=== PATIENT | female | born 1930 | race Caucasian/White ===

== ENCOUNTER 2016-07-23 07:15 | Emergency (ER) | payer OTHER ==
--- NOTE | 2016-07-23 09:43 | DIAGNOSTIC IMAGING REPORT ---
PROCEDURE: CT HEAD WITHOUT CONTRAST INDICATION: TRAUMA/INJURY TECHNIQUE: Axial CT images were acquired through the head. Coronal and sagittal reformations were created. COMPARISON: Head CT and 12/07/2012 FINDINGS: No underlying fracture or intracranial hemorrhage. Mild cortical atrophy and enlargement of the ventricular system. Mild white matter chronic ischemic changes. There is no acute CVA, edema, mass or midline shift. Small left parietal osteoma. The mastoids are clear. IMPRESSION: 1. No fracture or intracranial hemorrhage 2. Mild atrophy and white matter chronic ischemic changes 3. Results were called to Dr. Parham at 08:[address] scans at this facility use dose modulation, iterative reconstruction, and/or weight-based dosing when appropriate to reduce radiation dose to as low as reasonably achievable.
--- NOTE | 2016-07-23 10:18 | DIAGNOSTIC IMAGING REPORT ---
PROCEDURE: XR CHEST 1 VIEW INDICATION: WEAK TECHNIQUE: Portable AP view 09:53 a.m. COMPARISON: Chest x-ray 09/16/2013. FINDINGS: Poor inspiration with mild bibasilar atelectasis. Mild cardiomegaly. Mediastinum and prior vessels are normal. Thorax is normal. IMPRESSION: 1. Mild cardiomegaly 2. Poor inspiration with mild bibasilar atelectasis.
--- NOTE | 2016-07-23 10:24 | ED CLINICAL REPORT ---
Clinical Report - Physicians/Mid Levels [facility] [address], [place] [address] 07/23/2016 7:18 Patient: JOSE MARIA ANDREWS Time Seen: 07:49 Jul 23 2016. Arrived- By ambulance. Historian- patient, EMS personnel and family. HISTORY OF PRESENT ILLNESS Chief Complaint: FALL and INJURY TO HEAD. Location of injuries- head. The injury occurred just prior to arrival. Occurred at home. ( This occurred today. Occurred at long-term. Mechanism of injury: fell while standing and landed on a carpeted surface; lost balance and tripped per pt report. Fell from standing on the carpeted floor, felt weak before the fall and hit her head on the wall. Called for help by banging on the wall, no LOC but was found by the staff as slow to respond but with no deficits and remembered the incident prior to the fall. Red stevie on the right side of head and c/o cramp on her left leg but no other injuries noted by medics. Glucometer 115, with stable VS on the scene. She is reportedly taking coumadin). Fell. The patient complains of moderate pain. The patient sustained a blow to the head. No neck pain, loss of consciousness or seizure. REVIEW OF SYSTEMS No numbness, chest pain, difficulty breathing, headache or nausea. No abdominal pain, laceration, fever, vomiting or urinary problems. She has had generalized weakness, but no pain on weight bearing. All systems otherwise negative, except as recorded above. PAST HISTORY See nurses notes. PCP: [facility]. Atrial fibrillation. Congestive heart failure. Hypertension. Dementia. Parkinson's disease. Gastroesophageal reflux. Surgeries: Bowel surgery. Mastectomy. SOCIAL HISTORY Never smoker. Occasional alcohol use. No drug use. ADDITIONAL NOTES The nursing notes have been reviewed. PHYSICAL EXAM Vital Signs: 07/23/2016 07:20 BP: 150/60. HR: 78. RR: 20. O2 saturation: 96%. Temp: 98.3 F. Appearance: Alert. Oriented X3. Patient in mild distress. Head: No Collins's sign or raccoon eyes. Vertex: mild tenderness and swelling of the left aspect of the vertex. No erythema, laceration, abrasion, ecchymosis or puncture wound. No foreign body or deformity. Eyes: EOM intact. ENT: Pharynx normal. Neck: Painless ROM. Non-tender. CVS: Pulses normal. Respiratory: Breath sounds normal. Chest nontender. Abdomen: No visible injury. Soft and nontender. Back: No tenderness. ROM normal. No vertebral point tenderness. Skin: Skin intact. Skin warm and dry. Normal skin color. Normal skin turgor. Extremities: Left forearm: small abrasion located in the mid dorsal aspect of forearm. No tenderness, swelling, laceration or deformity. Pelvis stable. No lower extremity edema. Neuro: Powers Coma Scale: 14- eyes open spontaneously (4); best verbal response- disoriented (4); best motor response- obeys commands (6). No motor deficit. No sensory deficit. LABS, X-RAYS, AND EKG EKG: No acute process. Atrial fibrillation (narrow-complex) (ventricular rate 75). Nondiagnostic Q waves in lead V2. Poor R wave progression. Non-specific ST segment / T wave abnormalities. EKG unchanged when compared with prior EKG. (no change from 24MAR2015). The study has been interpreted contemporaneously by me. The EKG appears to be a good tracing. CT Head: No acute changes. No bony abnormalities, no hemorrhage, no intracranial mass, no midline shift and no hydrocephalus. No acute disease. There is atrophy is present. Head CT performed without contrast. The study was independently viewed by me, interpreted by the radiologist and discussed with the radiologist. Laboratory Tests: UA-Culture if indicated: (STEPH: 07/23/2016 09:42) ( MsgRcvd 07/23/2016 10:02) Final results Test Result Flag Units (Reference) URINE COLOR YELLOW URINE APPEARANCE CLEAR URINE GLUCOSE NEGATIVE (NEGATIVE) URINE BILIRUBIN NEGATIVE (NEGATIVE) URINE KETONE NEGATIVE (NEGATIVE) URINE SPECIFIC GRAVITY 1.010 (1.010-1.030) URINE PH 7.0 (5.0-8.0) URINE PROTEIN NEGATIVE (NEGATIVE) URINE UROBILINOGEN 0.2 EU/dL (0.2-1.0) URINE NITRITE NEGATIVE (NEGATIVE) URINE BLOOD NEGATIVE (NEGATIVE) URINE LEUK ESTERASE NEGATIVE (NEGATIVE) URINE RBC NONE SEEN rbc/hpf (0-1) URINE WBC 0-1 wbc/hpf (0-1) URINE EPITHELIAL CELLS 0-1 EPI/hpf (0-5) URINE BACTERIA TRACE (<1+) (NONE SEEN) URINE COMMENT CULT NOT INDICATED URINE CULTURES ARE SET-UP BASED ON THE FOLLOWING CRITERIA:POSITIVE NITRITEPOSITIVE LEUKOCYTE ESTERASEGREATER THAN 10 WHITE BLOOD CELLSMODERATE (2+) OR GREATER BACTERIA CBC w Diff: (STEPH: 07/23/2016 08:40) ( [facility] [place] [facility] [facility] Final results Test Result Flag Units (Reference) WHITE BLOOD COUNT 4.2 L K/uL (4.5-11.5) RED BLOOD COUNT 5.13 M/uL (4.00-5.20) HEMOGLOBIN 16.4 H gm/dL (12.0-16.0) HEMATOCRIT 48.6 H % (36.0-46.0) MEAN CELL VOLUME 95 fL (80-100) MEAN CORPUSCULAR HGB 32 pg (26-34) MEAN CORPUSCULAR HGB CONC 34 g/dL (31-37) RED CELL DISTRIBUTION WIDTH 12.6 % (11.6-14.8) PLATELET COUNT 163 K/uL (150-400) NEUTROPHIL % 69.5 % (50-75) LYMPH % 21.8 L % (25-40) MONO % 6.7 % (3-14) EOSINOPHIL % 1.2 % (0-4) BASOPHIL % 0.8 % (0-2) PT with INR: (STEPH: 07/23/2016 08:40) ( DegRcvd 07/23/2016 09:14) Final results Test Result Flag Units (Reference) INR 1.9 H (0.8-1.2) Low Intensity Therapy: INR 1.5-2.0 PT range 18.5-23.1Mod.Intensity Therapy: INR 2.0-3.0 PT range 23.1-31.5High Intensity Therapy: INR 2.5-3.5 PT range 27.4-35.5High Intensity Therapy 2: INR 3.0-4.0 PT range 31.5-39.3 CHEM 13 PANEL: (STEPH: 07/23/2016 08:40) ( MsgRcvd 07/23/2016 09:50) Final results Test Result Flag Units (Reference) GLUCOSE 107 mg/dL (70-110) BUN 24 H mg/dL (7-18) CREATININE 0.8 mg/dL (0.6-1.3) Estimated GFR >60 mL/min Estimated GFR- >60 mL/min Note: Persistent reduction over 3 months in eGFR<60 mL/min/1.73 m2 defines CKD. Patients with eGFR values>=60 mL/min/1.73 m2 may also have CKD if evidence ofpersistent proteinuria. Additional information may be foundat www.kidney.org. SODIUM 144 mmol/L (136-145) POTASSIUM 4.0 mmol/L (3.5-5.1) CHLORIDE 105 mmol/L (98-107) CARBON DIOXIDE 29 mmol/L (21-32) CALCIUM 9.0 mg/dL (8.5-10.1) TOTAL PROTEIN 7.4 g/dL (6.4-8.2) ALBUMIN 3.5 g/dL (3.3-5.0) BILIRUBIN, TOTAL 1.3 H mg/dL (0.0-1.0) ALKALINE PHOSPHATASE 60 U/L (46-116) AST (SGOT) 30 U/L (15-37) ALT (SGPT) 34 U/L (12-78) MAGNESIUM 2.1 mg/dL (1.8-2.4) CPK 155 U/L (24-260) TROPONIN I <0.05 ng/mL (0.00-1.5) TROPONIN REFERENCE RANGE:<0.1 NEGATIVE0.1-1.5 INDETERMINANT>1.5 POSITIVE . Pulse Oximetry: 07/23/2016 07:20 O2 saturation: 96%. (FIO2 - room air). Interpretation: normal. PROGRESS AND PROCEDURES Course of Care: Pt is essentially asymptomatic in the ED. Patient/family counseled. Old ED records reviewed. Disposition: Discharged. Condition: stable and improved. CLINICAL IMPRESSION Mild dehydration Abrasion to the left forearm. Single contusion to the scalp.No skin abrasion. Fall on same level by tripping. INSTRUCTIONS Drink plenty of fluids. Warnings: Further evaluation is necessary in order to recheck abnormal lab, obtain test results, conduct further tests and assess the possibility of serious illness. It is very important to follow up with a physician. GENERAL WARNINGS: Return or contact your physician immediately if your condition worsens or changes unexpectedly, if not improving as expected, or if other problems arise. Follow-up with: Eddie Tam MD, [facility], [address] [place] [address], [place] [address]; Karlo Cruz MD, [facility], [address] [place] [address], [place] [address]; Loretta Porter MD, [facility], [address] [place] [address], [place] [address] Follow up in about two days. (Electronically signed by Brown Conroy DO 07/23/2016 22:58)
--- NOTE | 2016-07-23 10:24 | ED ORDER SUMMARY ---
..... Patient: JOSE MARIA ANDREWS OrderSheet [facility] VisitID: [id number] [address] [place] [address] 85y, F Registration Date/Time: 07/23/2016 ORDER SHEET Weight: 74.8 kg Allergies: No Known Drug Allergy GENERAL ORDERS: CT Head wo Cont Urgent (07:07/23/2016 Leyda RAYMOND) (Ack 7:56 LNations ER Tech1) (8:44 Andrew R.N.) PT with INR Urgent (:07/23/2016 Leyda RAYMOND) (Ack 7:56 LNations ER Tech1) (7:58 Andrew Laird.N.) Chest 1V Urgent (:07/23/2016 Leyda RAYMOND) (Ack 9:31 LNations ER Tech1) (10:01 Bhumika) UA-Culture if indicated Urgent (:07/23/2016 Leyda RAYMOND) (Ack 9:31 LNations ER Tech1) (9:40 KHoerner) Cardiac Panel Stat (:07/23/2016 Leyda RAYMOND) (Ack 9:31 LNations ER Tech1) (9:40 KHoerner) EKG - ER Stat (07/23/2016 Leyda RAYMOND) (Ack 9:31 LNations ER Tech1) (9:58 PWeiler ER Tech1) MEDICATION ORDERS: IV FLUIDS: IV Saline Lock (07/23/2016 Leyda RAYMOND) (Ack 10:03 Andrew CrespoNHelen) ORDER SHEET NOTES: [Electronically signed by Lane Jerez R.N. (10:07/23/2016)] [Electronically locked/signed by Lane Jerez R.N. (07/23/2016)]
--- NOTE | 2016-07-23 10:24 | ED NURSING NOTES ---
Clinical Report - Nurses [facility] [address] [place] [address] 07/23/2016 7:18 Patient: JOSE MARIA ANDREWS TRIAGE Triage time 07:20. Acuity: LEVEL 2. Chief Complaint: INJURY TO HEAD. --07:33 Lane Jerez R.N. 07:20 07/23/16. BP: 150/60. HR: 78. RR: 20. O2 saturation: 96%. Temp: 98.3 F. Pain level now: cannot qualify. --07:33 Lane Jerez R.N. Weight: 74.8 kg. Height/Length: 67 inches. BMI: 25.9. --07:32 Lane Jerez R.N. Medications Carbidopa-Levodopa Oral (Tablet 25-250 mg) 1 tablet, 3x a day, last dose 07/22/16. --09:52 Lane Jerez R.N. Donepezil HCl Oral (Tablet 10 mg) 1 tablet, OD, last dose 07/22/16. --09:53 Lane Jerez R.N. Memantine HCl Oral (Tablet 5 mg) 1 tablet, BID, last dose 07/22/16. --09:54 Lane Jerez R.N. Mirtazapine Oral (Tablet 15 mg) 1 tablet, daily, last dose 07/22/16. --09:54 Lnae Jerez R.N. Omeprazole Oral (Tablet Delayed Release 20 mg) 1 tablet, daily, last dose 07/22/16. --09:55 Lane Jerez R.N. Oxybutynin Chloride ER Oral 5 MG 1 TABLET, OD, last dose 07/22/16. --09:56 Lane Jerez R.N. Vitamin D Oral (Tablet 1000 unit) 1 tablet, OD, last dose 07/22/16. --09:56 Lane Jerez R.N. Sxxalca-Arldhvcsg-Bnfaall D Oral, TAKE DIRECTED, last dose UNKNOWN. --09:58 Lane Jerez R.N. Turmeric Curcumin Oral (Capsule 500 mg), TAKE DIRECTED, last dose UNKNOWN. --09:59 Lane Jerez R.N. Green Tea (Camillia sinensis) Oral. Green Tea Extract Oral 400 MG, TAKE DIRECTED, last dose UNKNOWN. Green Tea Oral. --10:00 Lane Jerez R.N. Warfarin Sodium Oral (Tablet 2.5 mg) 1 tablet, daily, last dose 07/22/16 (1 DAY A WEEK). --10:01 Lane Jerez R.N. Warfarin Sodium Oral (Tablet 5 mg) 1 tablet, daily, last dose 07/21/16 (6 DAYS A WEEK). --10:02 Lane Jerez R.N. Allergies No Known Drug Allergy. --09:52 Lane Jerez R.N. History Arrived by EMS, and from a halfway. Historian: EMS. This occurred today. Occurred at halfway. Mechanism of injury: fell while standing and landed on a carpeted surface; lost balance. ( Fell from standing on the carpeted floor, felt weak before the fall and hit her head on the wall. Called for help by banging on the wall, no LOC but was found by the staff as slow to respond but with no deficits and remembered the incident prior to the fall. Red stevie on the right side of head and c/o cramp on her left leg but no other injuries noted by medics. Glucometer 115, with stable VS on the scene.). Treatment TABLEAU DEVELOPER: (c-collar). FALL RISK ASSESSMENT: Fall risk assessment completed. Risk factors identified include patient age greater than 65 years and impairment of hearing. Fall interventions initiated. Patient placed on stretcher. Side rails up x2. Brakes on Bed in low position. Patient visible from nurses' station. Call light in reach of patient. Instructed not to get up without assistance. 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 --07:33 Lane Jerez R.N. FALL RISK ASSESSMENT: Fall risk assessment completed. Fall interventions initiated. Patient identified as a fall risk by ID band. --10:11 Lane Jerez R.N. Interventions ID band on patient. ID band checked. TRAUMA protocol initiated. To treatment room. --07:33 Lane Jerez R.N. PHYSICAL ASSESSMENT To room via stretcher. In place: c-collar. GENERAL / NEURO / PSYCH: Alert. Oriented X 4. Appears in no acute distress. [place] Coma Scale: 15- eyes open spontaneously (4); best verbal response- oriented x 4 (5); best motor response- obeys commands (6). HEENT: Head: tenderness, swelling and abrasion present in the right parietal area. Right parietal area: tenderness and erythema. Pupils equal, round and reactive to light. EOM intact. Mouth within normal limits upon inspection. Voice within normal limits. No nasal injury noted. No dental injury noted. Mucous membranes are pink. RESPIRATORY: Respirations not labored. CVS: Capillary refill less than 2 seconds. GI / : Abdomen nontender. EXTREMITIES: Neuro-vascular status intact to the extremity. BACK: No neck or back tenderness. ROM normal to the neck and back. SKIN: Skin is warm and dry. --07:38 Lane Jerez R.N. GENERAL / NEURO / PSYCH: Revised trauma score: 12- respirations- 10-29 (4); systolic blood pressure- greater than 89 (4); Evy coma score- 13-15 (4). --07:38 Lane Jerez R.N. NURSING PROGRESS NOTES Cardiac rhythm: atrial fibrillation. Small hard c-collar applied. Patient gowned. Head of bed elevated. Reassurance given. GENERAL / NEURO / PSYCH: The patient reports right-sided headache that is mild in severity and is described as dull. Alert. Oriented X 4. RESPIRATORY: No respiratory distress. Breath sounds normal. CVS: Capillary refill less than 2 seconds. SKIN: Skin is warm. Two patient identifiers checked. Call light placed in reach. Side rails up x 2. Bed placed in lowest position. Brakes of bed on. Patient ready for evaluation- chart flagged and ED physician notified. --07:41 Lane Jerez R.N. 07:39 07/23/16. BP: 143/80. HR: 71. RR: 20. O2 saturation: 95%. Pain level now: cannot qualify. --07:41 Lane Jerez R.N. Cardiac rhythm: atrial fibrillation. C-collar applied (removed by Dr. Parham on assessment). The patient is calm. GENERAL / NEURO / PSYCH: The patient reports right-sided headache is still present and is currently described as dull. Alert. Oriented X 4. RESPIRATORY: No respiratory distress. Breath sounds normal. CVS: Capillary refill less than 2 seconds. SKIN: Skin is warm and dry. --07:58 Lane Jerez R.N. 07:55 07/23/16. BP: 152/74. HR: 76. RR: 18. O2 saturation: 97%. Pain level now: cannot qualify. --07:58 Lane Jerez R.N. 08:18 07/23/16. ( Attempted blood draw w/ butterfly needle to left and right AC, no blood collected.). --08:18 Brown [place]ley ER Tech1 Reassessment after (CT scan of head). She is calm. Overall patient status is the same. ( pain on the right side of head still present, no other voiced complaints, neuro intact). GENERAL / NEURO / PSYCH: Alert. Oriented X 4. RESPIRATORY: No respiratory distress. Breath sounds normal. CVS: Capillary refill less than 2 seconds. SKIN: Skin is warm and dry. Patient waiting for CT results. --08:41 Lane Jerez R.NHelen 08:42 07/23/16. BP: 152/76. HR: 76. RR: 18. O2 saturation: 96%. Pain level now: cannot qualify. --08:42 Lane Jerez R.N. 09:22 07/23/16. ( PT was able to stand with assistance. Took 3 steps with a walker, then needed to sit back down.). --09:22 Brown Oakley ER Tech1 09:28 07/23/16. ( PT up to bedside commode with 2 person assist and walker. Brief changed, was full of urine and a very small amount of stool.). --09:28 Brown Oakley ER Tech1 ( still has pain on the right side of the head but not worse than before, GCS 15/15). GENERAL / NEURO / PSYCH: Alert. Oriented X 4. RESPIRATORY: No respiratory distress. Breath sounds normal. CVS: Capillary refill less than 2 seconds. SKIN: Skin is warm. --10:10 Lane Jerez R.N. 10:07 07/23/16. BP: 138/79. HR: 77. RR: 21. O2 saturation: 98%. Temp: deferred. Pain level now: cannot qualify. --10:10 Lane Jerez R.N. DISPOSITION / DISCHARGE Condition at departure: improved and stable. Fall risk assessment completed. Fall interventions initiated. Instructed not to get up without assistance. No learning barriers present. Discharge instructions provided and reviewed with the family (daughter in law). Reviewed warnings (fall risk). Patient and family verbalized understanding. Written instructions provided in Portuguese. Verbalized understanding (daughter in law). The patient was discharged to the halfway and ([facility]) and accompanied by family and daughter in law. She left the Emergency Department in a wheelchair and via private vehicle. Family member driving (daughter in law). --10:54 Lane Jerez R.N. 10:51 07/23/16. BP: 132/76. HR: 75. RR: 20. O2 saturation: 100%. Temp: 98.1 F. Pain level now: cannot qualify. --10:54 Lane Jerez R.N. Departure time: 10:54. --10:54 Lane Jerez R.N. Locked/Released at 07/23/2016 10:[address]rez R.N.
--- NOTE | 2016-07-23 10:24 | ED CLINICAL REPORT ---
Clinical Report - Physicians/Mid Levels [facility] [address], [place] [address] 07/23/2016 7:18 Patient: JOSE MARIA ANDREWS Time Seen: 07:49 Jul 23 2016. Arrived- By ambulance. Historian- patient, EMS personnel and family. HISTORY OF PRESENT ILLNESS Chief Complaint: FALL and INJURY TO HEAD. Location of injuries- head. The injury occurred just prior to arrival. Occurred at home. ( This occurred today. Occurred at skilled nursing. Mechanism of injury: fell while standing and landed on a carpeted surface; lost balance and tripped per pt report. Fell from standing on the carpeted floor, felt weak before the fall and hit her head on the wall. Called for help by banging on the wall, no LOC but was found by the staff as slow to respond but with no deficits and remembered the incident prior to the fall. Red stevie on the right side of head and c/o cramp on her left leg but no other injuries noted by medics. Glucometer 115, with stable VS on the scene. She is reportedly taking coumadin). Fell. The patient complains of moderate pain. The patient sustained a blow to the head. No neck pain, loss of consciousness or seizure. REVIEW OF SYSTEMS No numbness, chest pain, difficulty breathing, headache or nausea. No abdominal pain, laceration, fever, vomiting or urinary problems. She has had generalized weakness, but no pain on weight bearing. All systems otherwise negative, except as recorded above. PAST HISTORY See nurses notes. PCP: [facility]. Atrial fibrillation. Congestive heart failure. Hypertension. Dementia. Parkinson's disease. Gastroesophageal reflux. Surgeries: Bowel surgery. Mastectomy. SOCIAL HISTORY Never smoker. Occasional alcohol use. No drug use. ADDITIONAL NOTES The nursing notes have been reviewed. PHYSICAL EXAM Vital Signs: 07/23/2016 07:20 BP: 150/60. HR: 78. RR: 20. O2 saturation: 96%. Temp: 98.3 F. Appearance: Alert. Oriented X3. Patient in mild distress. Head: No Collins's sign or raccoon eyes. Vertex: mild tenderness and swelling of the left aspect of the vertex. No erythema, laceration, abrasion, ecchymosis or puncture wound. No foreign body or deformity. Eyes: EOM intact. ENT: Pharynx normal. Neck: Painless ROM. Non-tender. CVS: Pulses normal. Respiratory: Breath sounds normal. Chest nontender. Abdomen: No visible injury. Soft and nontender. Back: No tenderness. ROM normal. No vertebral point tenderness. Skin: Skin intact. Skin warm and dry. Normal skin color. Normal skin turgor. Extremities: Left forearm: small abrasion located in the mid dorsal aspect of forearm. No tenderness, swelling, laceration or deformity. Pelvis stable. No lower extremity edema. Neuro: [place] Coma Scale: 14- eyes open spontaneously (4); best verbal response- disoriented (4); best motor response- obeys commands (6). No motor deficit. No sensory deficit. LABS, X-RAYS, AND EKG EKG: No acute process. Atrial fibrillation (narrow-complex) (ventricular rate 75). Nondiagnostic Q waves in lead V2. Poor R wave progression. Non-specific ST segment / T wave abnormalities. EKG unchanged when compared with prior EKG. (no change from 24MAR2015). The study has been interpreted contemporaneously by me. The EKG appears to be a good tracing. CT Head: No acute changes. No bony abnormalities, no hemorrhage, no intracranial mass, no midline shift and no hydrocephalus. No acute disease. There is atrophy is present. Head CT performed without contrast. The study was independently viewed by me, interpreted by the radiologist and discussed with the radiologist. Laboratory Tests: UA-Culture if indicated: (STEPH: 07/23/2016 09:42) ( MsgRcvd 07/23/2016 10:02) Final results Test Result Flag Units (Reference) URINE COLOR YELLOW URINE APPEARANCE CLEAR URINE GLUCOSE NEGATIVE (NEGATIVE) URINE BILIRUBIN NEGATIVE (NEGATIVE) URINE KETONE NEGATIVE (NEGATIVE) URINE SPECIFIC GRAVITY 1.010 (1.010-1.030) URINE PH 7.0 (5.0-8.0) URINE PROTEIN NEGATIVE (NEGATIVE) URINE UROBILINOGEN 0.2 EU/dL (0.2-1.0) URINE NITRITE NEGATIVE (NEGATIVE) URINE BLOOD NEGATIVE (NEGATIVE) URINE LEUK ESTERASE NEGATIVE (NEGATIVE) URINE RBC NONE SEEN rbc/hpf (0-1) URINE WBC 0-1 wbc/hpf (0-1) URINE EPITHELIAL CELLS 0-1 EPI/hpf (0-5) URINE BACTERIA TRACE (<1+) (NONE SEEN) URINE COMMENT CULT NOT INDICATED URINE CULTURES ARE SET-UP BASED ON THE FOLLOWING CRITERIA:POSITIVE NITRITEPOSITIVE LEUKOCYTE ESTERASEGREATER THAN 10 WHITE BLOOD CELLSMODERATE (2+) OR GREATER BACTERIA CBC w Diff: (STEPH: 07/23/2016 08:40) ( [facility]) Final results Test Result Flag Units (Reference) WHITE BLOOD COUNT 4.2 L K/uL (4.5-11.5) RED BLOOD COUNT 5.13 M/uL (4.00-5.20) HEMOGLOBIN 16.4 H gm/dL (12.0-16.0) HEMATOCRIT 48.6 H % (36.0-46.0) MEAN CELL VOLUME 95 fL (80-100) MEAN CORPUSCULAR HGB 32 pg (26-34) MEAN CORPUSCULAR HGB CONC 34 g/dL (31-37) RED CELL DISTRIBUTION WIDTH 12.6 % (11.6-14.8) PLATELET COUNT 163 K/uL (150-400) NEUTROPHIL % 69.5 % (50-75) LYMPH % 21.8 L % (25-40) MONO % 6.7 % (3-14) EOSINOPHIL % 1.2 % (0-4) BASOPHIL % 0.8 % (0-2) PT with INR: (STEPH: 07/23/2016 08:40) ( WigRcvd 07/23/2016 09:14) Final results Test Result Flag Units (Reference) INR 1.9 H (0.8-1.2) Low Intensity Therapy: INR 1.5-2.0 PT range 18.5-23.1Mod.Intensity Therapy: INR 2.0-3.0 PT range 23.1-31.5High Intensity Therapy: INR 2.5-3.5 PT range 27.4-35.5High Intensity Therapy 2: INR 3.0-4.0 PT range 31.5-39.3 CHEM 13 PANEL: (STEPH: 07/23/2016 08:40) ( MsgRcvd 07/23/2016 09:50) Final results Test Result Flag Units (Reference) GLUCOSE 107 mg/dL (70-110) BUN 24 H mg/dL (7-18) CREATININE 0.8 mg/dL (0.6-1.3) Estimated GFR >60 mL/min Estimated GFR- >60 mL/min Note: Persistent reduction over 3 months in eGFR<60 mL/min/1.73 m2 defines CKD. Patients with eGFR values>=60 mL/min/1.73 m2 may also have CKD if evidence ofpersistent proteinuria. Additional information may be foundat www.kidney.org. SODIUM 144 mmol/L (136-145) POTASSIUM 4.0 mmol/L (3.5-5.1) CHLORIDE 105 mmol/L (98-107) CARBON DIOXIDE 29 mmol/L (21-32) CALCIUM 9.0 mg/dL (8.5-10.1) TOTAL PROTEIN 7.4 g/dL (6.4-8.2) ALBUMIN 3.5 g/dL (3.3-5.0) BILIRUBIN, TOTAL 1.3 H mg/dL (0.0-1.0) ALKALINE PHOSPHATASE 60 U/L (46-116) AST (SGOT) 30 U/L (15-37) ALT (SGPT) 34 U/L (12-78) MAGNESIUM 2.1 mg/dL (1.8-2.4) CPK 155 U/L (24-260) TROPONIN I <0.05 ng/mL (0.00-1.5) TROPONIN REFERENCE RANGE:<0.1 NEGATIVE0.1-1.5 INDETERMINANT>1.5 POSITIVE . Pulse Oximetry: 07/23/2016 07:20 O2 saturation: 96%. (FIO2 - room air). Interpretation: normal. PROGRESS AND PROCEDURES Course of Care: Pt is essentially asymptomatic in the ED. Patient/family counseled. Old ED records reviewed. Disposition: Discharged. Condition: stable and improved. CLINICAL IMPRESSION Mild dehydration Abrasion to the left forearm. Single contusion to the scalp.No skin abrasion. Fall on same level by tripping. INSTRUCTIONS Drink plenty of fluids. Warnings: Further evaluation is necessary in order to recheck abnormal lab, obtain test results, conduct further tests and assess the possibility of serious illness. It is very important to follow up with a physician. GENERAL WARNINGS: Return or contact your physician immediately if your condition worsens or changes unexpectedly, if not improving as expected, or if other problems arise. Follow-up with: Eddie Tam MD, [facility], [address] [place] [address], [place] [phone]; Karlo Cruz MD, [facility], [address] [place] [address], [place] [phone]; Loretta Porter MD, [facility], [address] [place] [address], [place] [phone] Follow up in about two days. (Electronically signed by Brown Conroy DO 07/23/2016 22:58)
--- NOTE | 2016-07-23 10:24 | ED ORDER SUMMARY ---
..... Patient: JOSE MARIA ANDREWS OrderSheet [facility] VisitID: [id number] [address] [place] [address] 85y, F Registration Date/Time: 07/23/2016 ORDER SHEET Weight: 74.8 kg Allergies: No Known Drug Allergy GENERAL ORDERS: CT Head wo Cont Urgent (07:07/23/2016 Leyda RAYMOND) (Ack 7:56 LNations ER Tech1) (8:44 Andrew R.N.) PT with INR Urgent (:07/23/2016 Leyda RAYMOND) (Ack 7:56 LNations ER Tech1) (7:58 Andrew Laird.N.) Chest 1V Urgent (:07/23/2016 Leyda RAYMOND) (Ack 9:31 LNations ER Tech1) (10:01 Bhumika) UA-Culture if indicated Urgent (:07/23/2016 Leyda RAYMOND) (Ack 9:31 LNations ER Tech1) (9:40 KHoerner) Cardiac Panel Stat (:07/23/2016 Leyda RAYMOND) (Ack 9:31 LNations ER Tech1) (9:40 KHoerner) EKG - ER Stat (07/23/2016 Leyda RAYMOND) (Ack 9:31 LNations ER Tech1) (9:58 PWeiler ER Tech1) MEDICATION ORDERS: IV FLUIDS: IV Saline Lock (07/23/2016 Leyda RAYMOND) (Ack 10:03 Andrew CrespoNHelen) ORDER SHEET NOTES: [Electronically signed by Lane Jerez R.N. (10:07/23/2016)] [Electronically locked/signed by Lane Jerez R.N. (07/23/2016)]
--- NOTE | 2016-07-23 10:24 | ED NURSING NOTES ---
Clinical Report - Nurses [facility] [address] [place] [address] 07/23/2016 7:18 Patient: JOSE MARIA ANDREWS TRIAGE Triage time 07:20. Acuity: LEVEL 2. Chief Complaint: INJURY TO HEAD. --07:33 Lane Jerez R.N. 07:20 07/23/16. BP: 150/60. HR: 78. RR: 20. O2 saturation: 96%. Temp: 98.3 F. Pain level now: cannot qualify. --07:33 Lane Jerez R.N. Weight: 74.8 kg. Height/Length: 67 inches. BMI: 25.9. --07:32 Lane Jerez R.N. Medications Carbidopa-Levodopa Oral (Tablet 25-250 mg) 1 tablet, 3x a day, last dose 07/22/16. --09:52 Lane Jerez R.N. Donepezil HCl Oral (Tablet 10 mg) 1 tablet, OD, last dose 07/22/16. --09:53 Lane Jerez R.N. Memantine HCl Oral (Tablet 5 mg) 1 tablet, BID, last dose 07/22/16. --09:54 Lane Jerez R.N. Mirtazapine Oral (Tablet 15 mg) 1 tablet, daily, last dose 07/22/16. --09:54 Lane Jerez R.N. Omeprazole Oral (Tablet Delayed Release 20 mg) 1 tablet, daily, last dose 07/22/16. --09:55 Lane Jerez R.N. Oxybutynin Chloride ER Oral 5 MG 1 TABLET, OD, last dose 07/22/16. --09:56 Lane Jerez R.N. Vitamin D Oral (Tablet 1000 unit) 1 tablet, OD, last dose 07/22/16. --09:56 Lane Jerez R.N. Ztpcgqe-Xsfjiigbg-Eljenbv D Oral, TAKE DIRECTED, last dose UNKNOWN. --09:58 Lane Jerez R.N. Turmeric Curcumin Oral (Capsule 500 mg), TAKE DIRECTED, last dose UNKNOWN. --09:59 Lane Jerez R.N. Green Tea (Camillia sinensis) Oral. Green Tea Extract Oral 400 MG, TAKE DIRECTED, last dose UNKNOWN. Green Tea Oral. --10:00 Lane Jerez R.N. Warfarin Sodium Oral (Tablet 2.5 mg) 1 tablet, daily, last dose 07/22/16 (1 DAY A WEEK). --10:01 Lane Jerez R.N. Warfarin Sodium Oral (Tablet 5 mg) 1 tablet, daily, last dose 07/21/16 (6 DAYS A WEEK). --10:02 Lane Jerez R.N. Allergies No Known Drug Allergy. --09:52 Lane Jerez R.N. History Arrived by EMS, and from a group home. Historian: EMS. This occurred today. Occurred at group home. Mechanism of injury: fell while standing and landed on a carpeted surface; lost balance. ( Fell from standing on the carpeted floor, felt weak before the fall and hit her head on the wall. Called for help by banging on the wall, no LOC but was found by the staff as slow to respond but with no deficits and remembered the incident prior to the fall. Red stevie on the right side of head and c/o cramp on her left leg but no other injuries noted by medics. Glucometer 115, with stable VS on the scene.). Treatment WARP WORKER: (c-collar). FALL RISK ASSESSMENT: Fall risk assessment completed. Risk factors identified include patient age greater than 65 years and impairment of hearing. Fall interventions initiated. Patient placed on stretcher. Side rails up x2. Brakes on Bed in low position. Patient visible from nurses' station. Call light in reach of patient. Instructed not to get up without assistance. 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 --07:33 Lane Jerez R.N. FALL RISK ASSESSMENT: Fall risk assessment completed. Fall interventions initiated. Patient identified as a fall risk by ID band. --10:11 Lane Jerez R.N. Interventions ID band on patient. ID band checked. TRAUMA protocol initiated. To treatment room. --07:33 Lane Jerez R.N. PHYSICAL ASSESSMENT To room via stretcher. In place: c-collar. GENERAL / NEURO / PSYCH: Alert. Oriented X 4. Appears in no acute distress. [place] Coma Scale: 15- eyes open spontaneously (4); best verbal response- oriented x 4 (5); best motor response- obeys commands (6). HEENT: Head: tenderness, swelling and abrasion present in the right parietal area. Right parietal area: tenderness and erythema. Pupils equal, round and reactive to light. EOM intact. Mouth within normal limits upon inspection. Voice within normal limits. No nasal injury noted. No dental injury noted. Mucous membranes are pink. RESPIRATORY: Respirations not labored. CVS: Capillary refill less than 2 seconds. GI / : Abdomen nontender. EXTREMITIES: Neuro-vascular status intact to the extremity. BACK: No neck or back tenderness. ROM normal to the neck and back. SKIN: Skin is warm and dry. --07:38 Lane Jerez R.N. GENERAL / NEURO / PSYCH: Revised trauma score: 12- respirations- 10-29 (4); systolic blood pressure- greater than 89 (4); Evy coma score- 13-15 (4). --07:38 Lane Jerez R.N. NURSING PROGRESS NOTES Cardiac rhythm: atrial fibrillation. Small hard c-collar applied. Patient gowned. Head of bed elevated. Reassurance given. GENERAL / NEURO / PSYCH: The patient reports right-sided headache that is mild in severity and is described as dull. Alert. Oriented X 4. RESPIRATORY: No respiratory distress. Breath sounds normal. CVS: Capillary refill less than 2 seconds. SKIN: Skin is warm. Two patient identifiers checked. Call light placed in reach. Side rails up x 2. Bed placed in lowest position. Brakes of bed on. Patient ready for evaluation- chart flagged and ED physician notified. --07:41 Lane Jerez R.N. 07:39 07/23/16. BP: 143/80. HR: 71. RR: 20. O2 saturation: 95%. Pain level now: cannot qualify. --07:41 Lane Jerez R.N. Cardiac rhythm: atrial fibrillation. C-collar applied (removed by Dr. Parham on assessment). The patient is calm. GENERAL / NEURO / PSYCH: The patient reports right-sided headache is still present and is currently described as dull. Alert. Oriented X 4. RESPIRATORY: No respiratory distress. Breath sounds normal. CVS: Capillary refill less than 2 seconds. SKIN: Skin is warm and dry. --07:58 Lane Jerez R.N. 07:55 07/23/16. BP: 152/74. HR: 76. RR: 18. O2 saturation: 97%. Pain level now: cannot qualify. --07:58 Lane Jerez R.N. 08:18 07/23/16. ( Attempted blood draw w/ butterfly needle to left and right AC, no blood collected.). --08:18 Brown [place]ley ER Tech1 Reassessment after (CT scan of head). She is calm. Overall patient status is the same. ( pain on the right side of head still present, no other voiced complaints, neuro intact). GENERAL / NEURO / PSYCH: Alert. Oriented X 4. RESPIRATORY: No respiratory distress. Breath sounds normal. CVS: Capillary refill less than 2 seconds. SKIN: Skin is warm and dry. Patient waiting for CT results. --08:41 Lane Jerez R.NHelen 08:42 07/23/16. BP: 152/76. HR: 76. RR: 18. O2 saturation: 96%. Pain level now: cannot qualify. --08:42 Lane Jerez R.N. 09:22 07/23/16. ( PT was able to stand with assistance. Took 3 steps with a walker, then needed to sit back down.). --09:22 Brown Oakley ER Tech1 09:28 07/23/16. ( PT up to bedside commode with 2 person assist and walker. Brief changed, was full of urine and a very small amount of stool.). --09:28 Brown Oakley ER Tech1 ( still has pain on the right side of the head but not worse than before, GCS 15/15). GENERAL / NEURO / PSYCH: Alert. Oriented X 4. RESPIRATORY: No respiratory distress. Breath sounds normal. CVS: Capillary refill less than 2 seconds. SKIN: Skin is warm. --10:10 Lane Jerez R.N. 10:07 07/23/16. BP: 138/79. HR: 77. RR: 21. O2 saturation: 98%. Temp: deferred. Pain level now: cannot qualify. --10:10 Lane Jerez R.N. DISPOSITION / DISCHARGE Condition at departure: improved and stable. Fall risk assessment completed. Fall interventions initiated. Instructed not to get up without assistance. No learning barriers present. Discharge instructions provided and reviewed with the family (daughter in law). Reviewed warnings (fall risk). Patient and family verbalized understanding. Written instructions provided in Wolof. Verbalized understanding (daughter in law). The patient was discharged to the group home and ([facility]) and accompanied by family and daughter in law. She left the Emergency Department in a wheelchair and via private vehicle. Family member driving (daughter in law). --10:54 Lane Jerez R.N. 10:51 07/23/16. BP: 132/76. HR: 75. RR: 20. O2 saturation: 100%. Temp: 98.1 F. Pain level now: cannot qualify. --10:54 Lane Jerez R.N. Departure time: 10:54. --10:54 Lane Jerez R.N. Locked/Released at 07/23/2016 10:[address]rez R.N.
--- NOTE | 2016-07-23 22:59 | ED MED RECONCILIATION SUMMARY ---
Patient: JOSE MARIA ANDREWS Medication Reconciliation Report [facility] VisitID: [id number] [address] [place] [address] 85y, F Registration Date/Time: 07/23/2016 Weight: 74.8 kg Height/Length: 67 in. BMI: 25.9 ALLERGIES: No Known Drug Allergy The patient's Home Medications are listed below: THE FOLLOWING MEDICATIONS NEED TO BE RECONCILED: Moywppv-Pphorloub-Lrxftjp D Oral, TAKE DIRECTED, last dose: UNKNOWN Carbidopa-Levodopa Oral (25-250 mg) 1 tablet, 3x a day, last dose: 07/22/16 Donepezil HCl Oral (10 mg) 1 tablet, OD, last dose: 07/22/16 Green Tea (Camillia sinensis) Oral Green Tea Extract Oral 400 MG, TAKE DIRECTED, last dose: UNKNOWN Green Tea Oral Memantine HCl Oral (5 mg) 1 tablet, BID, last dose: 07/22/16 Mirtazapine Oral (15 mg) 1 tablet, daily, last dose: 07/22/16 Omeprazole Oral (20 mg) 1 tablet, daily, last dose: 07/22/16 Oxybutynin Chloride ER Oral 5 MG 1 TABLET, OD, last dose: 07/22/16 Turmeric Curcumin Oral (500 mg), TAKE DIRECTED, last dose: UNKNOWN Vitamin D Oral (1000 unit) 1 tablet, OD, last dose: 07/22/16 Warfarin Sodium Oral (5 mg) 1 tablet, daily, last dose: 07/21/16, 6 DAYS A WEEK Warfarin Sodium Oral (2.5 mg) 1 tablet, daily, last dose: 07/22/16, 1 DAY A WEEK The source(s) of the original Home Medication information: Not obtained. The following Medications were given to the patient in the Emergency Department: None. The following Medications were prescribed to the patient: None.
--- NOTE | 2016-07-23 22:59 | ED MAR SUMMARY ---
..... Medication Administration Record [facility] [address] [place], [place] [id number] Patient: JOSE MARIA ANDREWS Visit ID: [id number] 85y, F Weight: 74.8 kg Height/Length: 67 in BMI: 25.9 ALLERGIES: No Known Drug Allergy
--- NOTE | 2016-07-23 22:59 | ED MAR SUMMARY ---
..... Medication Administration Record [facility] [address] [place], [place] [id number] Patient: JOSE MARIA ANDREWS Visit ID: [id number] 85y, F Weight: 74.8 kg Height/Length: 67 in BMI: 25.9 ALLERGIES: No Known Drug Allergy
--- NOTE | 2016-07-23 22:59 | ED DISCHARGE INSTRUCTIONS ---
Patient: JOSE MARIA ANDREWS General Instructions [facility] VisitID: [id number] [place] [address] 85y, F Registration Date/Time: 07/23/2016 Mild dehydration Abrasion to the left forearm. Single contusion to the scalp.No skin abrasion. Fall on same level by tripping. INSTRUCTIONS Drink plenty of fluids. Warnings: Further evaluation is necessary in order to recheck abnormal lab, obtain test results, conduct further tests and assess the possibility of serious illness. It is very important to follow up with a physician. GENERAL WARNINGS: Return or contact your physician immediately if your condition worsens or changes unexpectedly, if not improving as expected, or if other problems arise. Follow-up with: Eddie Tam MD, [facility], [address] [place] [address]; Karlo Cruz MD, [place] [address]; Loretta Porter MD, [facility], [address] [place] [address] Follow up in about two days. ADDITIONAL INFORMATION Fall, Uncertain Cause You have had a fall today. but the cause of your fall is not certain. Falls can occur due to slipping, tripping or losing your balance. A fall can also occur from a fainting spell or seizure. Because the cause of your fall today is not certain, it is possible that a fainting spell or seizure was the cause. This means that it could happen again, without warning. If you fall again, without a cause, then you should return to this facility promptly to have further tests. Otherwise, follow up with your doctor as explained below. Home Care: 1) Rest today and resume your normal activities as soon as you are feeling back to normal. It is best to remain with someone who can check on you for the next 24 hours to watch for another episode of falling. 2) If you were injured during the fall, follow the advice from your doctor regarding care of your injury. 3) If you become light-headed or dizzy, lie down immediately or sit and lean forward with your head down. 4) As a precaution, do not drive a car or operate dangerous equipment, do not take a bath alone (use a shower instead) and do not swim alone until you see your doctor. A condition causing fainting or seizures must be ruled out before resuming these activities. 5)You may use acetaminophen (Tylenol) or ibuprofen (Motrin, Advil) to control pain, unless another pain medicine was prescribed. [ NOTE : If you have chronic liver or kidney disease or ever had a stomach ulcer or GI bleeding, talk with your doctor before using these medicines.] 6) Keep your appointments for any further testing that may have been scheduled for you. Follow Up: Unless, given other advice, call your doctor on the next office day to advise of your fall and to schedule an appointment. Get Prompt Medical Attention if any of the following occur: -- Another unexplained fall -- Dizziness, fainting or seizure -- Severe headache -- Chest pain or shortness of breath -- Palpitations (very rapid or very slow or irregular heart beat) -- Blood in vomit, stools (black or red color) -- Weakness of an arm or leg or one side of the face -- Difficulty with speech or vision Abrasions Abrasions are skin scrapes. Their treatment depends on how large and deep the abrasion is. Home Care: If you were given a bandage, change it once a day. If your bandage sticks to the wound, soak it in warm water until it loosens. Wash the area with soap and water to remove all the cream/ointment. You may do this in a sink, under a tub faucet or shower. Rinse off the soap and pat dry with a clean towel. Reapply cream/ointment according to your doctor's instructions. This will prevent infection and help prevent the bandage from sticking. Cover the wound with a fresh non-stick bandage (Telfa). Repeat steps 1 to 4 daily, or as directed by your doctor. If the bandage becomes wet or dirty, change it as soon as possible. You may use acetaminophen (Tylenol) or ibuprofen (Motrin, Advil) to control pain, unless another pain medicine was prescribed. [ NOTE : If you have chronic liver or kidney disease or ever had a stomach ulcer or GI bleeding, talk with your doctor before using these medicines.] Do not use ibuprofen in children under six months of age. Follow Up with your physician or this facility as directed by our staff. Most skin wounds heal within ten days. However, an infection may occur despite proper treatment. Therefore, look for the early signs of infection listed below. Get Prompt Medical Attention if any of the following occur: Increasing pain in the wound Increasing redness or swelling Pus coming from the wound Fever of 100.4F (38C) or higher, or as directed by your healthcare provider Dehydration (Adult) Dehydration occurs when your body loses too much fluid. This may be the result of vomiting a lot or from diarrhea,sweating a lot, or a high fever. It may also happen if you dont drink enough fluid when youre sick. Misuse of diuretics (water pills) can also be a cause. Symptoms include thirst and feeling dizzy, weak, fatigued, or very drowsy. The diet described below is usually enough to treat most cases. Sometimes you may needmedicine. Home Care Follow these guidelines for home care: Drink at least 12 8-ounce glasses of fluid every day to overcome the dehydration. Fluid may include water; orange juice; lemonade; apple, grape, and cranberry juice; clear fruit drinks; electrolyte replacement and sports drinks; and teas and coffee without caffeine. If you have been diagnosed with a kidney disease, ask your doctor how much and what types of fluids you should drink to prevent dehydration. If you have kidney disease, drinking too much fluid can cause it build up in the your body and be dangerous to your health. If you have fever, muscle aching, or headache from a viral syndrome, you may useacetaminophen or ibuprofen, unless another medicine was prescribed for this.If you have chronic liver or kidney disease or ever had a stomach ulcer or GI bleeding, talk with your doctor before using these medicines. Don't take aspirin if you are younger than 18 and are ill with a fever.Aspirin raises the chance forsevere liver injury. Follow-up care Follow up with your health care provider if you don't get better in the next 24 to 48 hours. When to seek medical care Get prompt medical attention if any of theseoccur: Continued vomiting (cant keep liquids down) Frequent diarrhea (more than 5 times a day); blood (red or black color) or mucus in diarrhea Blood in vomit or stool Swollen abdomen or increasing abdominal pain Weakness, dizziness, or fainting Unusually drowsy or confused Reduced urine output or extreme thirst Fever of 100.4 F (38 C) oral or higher that does not get better with fever medication You have been given the following additional information: Fall, Uncertain Cause Abrasion Dehydration (Adult) (Electronically signed by Brown Cnoroy DO 07/23/2016 22:58)
--- NOTE | 2016-07-23 22:59 | ED MED RECONCILIATION SUMMARY ---
Patient: JOSE MARIA ANDREWS Medication Reconciliation Report [facility] VisitID: [id number] [place] [address] 85y, F Registration Date/Time: 07/23/2016 Weight: 74.8 kg Height/Length: 67 in. BMI: 25.9 ALLERGIES: No Known Drug Allergy The patient's Home Medications are listed below: THE FOLLOWING MEDICATIONS NEED TO BE RECONCILED: Iccmbka-Fxcvebznn-Zgllwwq D Oral, TAKE DIRECTED, last dose: UNKNOWN Carbidopa-Levodopa Oral (25-250 mg) 1 tablet, 3x a day, last dose: 07/22/16 Donepezil HCl Oral (10 mg) 1 tablet, OD, last dose: 07/22/16 Green Tea (Camillia sinensis) Oral Green Tea Extract Oral 400 MG, TAKE DIRECTED, last dose: UNKNOWN Green Tea Oral Memantine HCl Oral (5 mg) 1 tablet, BID, last dose: 07/22/16 Mirtazapine Oral (15 mg) 1 tablet, daily, last dose: 07/22/16 Omeprazole Oral (20 mg) 1 tablet, daily, last dose: 07/22/16 Oxybutynin Chloride ER Oral 5 MG 1 TABLET, OD, last dose: 07/22/16 Turmeric Curcumin Oral (500 mg), TAKE DIRECTED, last dose: UNKNOWN Vitamin D Oral (1000 unit) 1 tablet, OD, last dose: 07/22/16 Warfarin Sodium Oral (5 mg) 1 tablet, daily, last dose: 07/21/16, 6 DAYS A WEEK Warfarin Sodium Oral (2.5 mg) 1 tablet, daily, last dose: 07/22/16, 1 DAY A WEEK The source(s) of the original Home Medication information: Not obtained. The following Medications were given to the patient in the Emergency Department: None. The following Medications were prescribed to the patient: None.
== END 2016-07-23 10:52 | disposition home or self-care (01) ==
LOC: ED SRH 07:15
DX: S00.03XA Contusion of scalp, initial encounter (principal); S50.812A Abrasion of left forearm, initial encounter; E86.0 Dehydration; W18.09XA Striking against other object with subsequent fall, initial encounter; Y92.129 Unspecified place in nursing home as the place of occurrence of the external cause; Y99.9 Unspecified external cause status; I10 Essential (primary) hypertension; K21.9 Gastro-esophageal reflux disease without esophagitis; Z79.899 Other long term (current) drug therapy
CPT/HCPCS: 90004; 90074; 90100; 90616; 92610; 92720; 94060; 95059

== ENCOUNTER 2016-07-30 13:23 | Outpatient (CLI) | payer OTHER ==
--- NOTE | 2016-07-30 14:09 | DIAGNOSTIC IMAGING REPORT ---
PROCEDURE: CT HEAD WITHOUT CONTRAST INDICATION: HEAD INJURY; CONFUSSION; HEADACHE TECHNIQUE: Axial CT images were acquired through the head. Coronal and sagittal reformations were created. COMPARISON: Head CT 07/23/2016 and 12/07/2012 FINDINGS: No underlying fracture or intracranial hemorrhage. Mild cortical atrophy and enlargement of the ventricular system. Mild white matter chronic ischemic changes. There is no acute CVA, edema, mass or midline shift. Small left parietal osteoma. The mastoids are clear. IMPRESSION: 1. No fracture or intracranial hemorrhage 2. Mild atrophy and white matter chronic ischemic changes 3. Results were called to Dr. Arroyo at 02:[address] scans at this facility use dose modulation, iterative reconstruction, and/or weight-based dosing when appropriate to reduce radiation dose to as low as reasonably achievable.
== END 2016-07-30 23:00 ==
LOC: CT SRH 13:23
DX: S09.90XA Unspecified injury of head, initial encounter (principal); Z74.09 Other reduced mobility; R90.82 White matter disease, unspecified